=== PATIENT | female | born 1995 | race Two or more races ===

== ENCOUNTER 2018-04-27 15:41 | Emergency (ER) | payer OTHER ==
[~2018-04-27] VITALS: Ht 154.9 cm; Wt 60.7 kg
[2018-04-27 16:59] LABS: BASOPHILS # (AUTO) 0.04 x10^3/uL (0-0.1); BASOPHILS % (AUTO) 1 % (0-1); EOSINOPHILS # (AUTO) 0.08 x10^3/uL (0-0.4); EOSINOPHILS % (AUTO) 1 % (1-7); LYMPHOCYTES # (AUTO) 1.82 x10^3/uL (1-3.4); LYMPHOCYTES % (AUTO) 28 % (22-44); MD NO; MEAN CORPUSCULAR HEMOGLOBIN 31.7 pg (27.0-34.8); MEAN CORPUSCULAR HGB CONC 34.6 g/dL (32.4-35.8); MEAN CORPUSCULAR VOLUME 91.5 fL (80-100); MEAN PLATELET VOLUME 8.2 fL (7.4-10.4); MONOCYTES % (AUTO) 8 % (2-9); NEUTROPHILS # (AUTO) 3.98 x10^3/uL (1.8-6.8); NEUTROPHILS % (AUTO) 62 % (42-75); PLATELET COUNT 306 x10^3/uL (130-400); RED BLOOD COUNT 4.13 x10^6/uL (3.82-5.3)
[2018-04-27 17:07] LABS: ALBUMIN 3.7 g/dL (3.4-5.0); ANION GAP 7 mmol/L (5-15); CALCIUM 8.9 mg/dL (8.5-10.1); CHLORIDE 109 mmol/L (98-107); CREATININE 0.78 mg/dL (0.55-1.02)
[2018-04-27] MEDS ORDERED: AZITHROMYCIN 500 MG TABLET PO ONE (17:20)
[2018-04-27 17:30] LABS: CLUE CELLS NONE SEEN (NONE SEEN); WET PREP WBCS FEW (FEW)
[2018-04-27] MEDS ORDERED: CEFTRIAXONE 250 MG IM ONE (17:30)
[2018-04-27 18:13] LABS: MICROSCOPIC INDICATED
[2018-04-27 18:20] LABS: CULTURE INDICATED? YES
[2018-04-27] MEDS ORDERED: AZITHROMYCIN 500 MG TABLET ONE (18:27)
[2018-04-27] MEDS ORDERED: CEFTRIAXONE 250 MG ONE (18:27)
[2018-04-27] MEDS ORDERED: LIDOCAINE-MPF 1%, 2ML ONE (18:27)
[2018-04-27 18:47] VITALS: BP 118/63
== END 2018-04-27 19:19 | disposition home or self-care (01) ==
LOC: ED 19:13
DX: N83.291 Other ovarian cyst, right side (principal); R10.31 Right lower quadrant pain; R10.32 Left lower quadrant pain
CPT/HCPCS: 36415; 76830; 80048; 81001; 82040; 84703; 85025; 87086; 87210; 87491; 87591; 87808; 96372; 99285; J0696